=== PATIENT | female | born 1985 | race Caucasian/White ===

== ENCOUNTER 2024-01-12 15:11 | Emergency (ER) | payer OTHER, SELFPAY ==
[2024-01-12 15:22] VITALS: BP 110/75
[2024-01-12 15:54] LABS: % Basophils 0.9 % (0-2); % Eosinophils 0.9 % (0-6); % Immature Granulocytes 0.1 % (0-0.5); % Lymphocytes 30.8 % (20.5-51.1); % Monocytes 10.7 % (1.7-9.3); % Neutrophils 56.6 % (42.2-75.2); Absolute Basophils 0.1 10^3/uL (0-0.2); Absolute Eosinophils 0.1 10^3/uL (0-0.7); Absolute Lymphocytes 2.1 10^3/uL (1.2-3.4); Absolute Monocytes 0.7 10^3/uL (0.1-0.6); Absolute Neutrophils 3.9 10^3/uL (1.4-6.5); Hematocrit 37.6 % (37.0-47.0); Hemoglobin 12.9 g/dL (12.0-16.0); Mean Corp Hgb Conc. 34.3 g/dL (33.0-37.0); Mean Corpuscular Hgb 30.4 pg (27.0-31.0); Mean Corpuscular Volume 88.7 fL (81.0-99.0); Mean Platelet Volume 9.5 fL (7.4-10.4); Nucleated Red Blood Cells % 0 %; Platelet Count 256 10^3/uL (130-400); Red Blood Cell Count 4.24 10^6/uL (4.20-5.40); White Blood Cell Count 6.9 10^3/uL (4.8-10.8)
[2024-01-12 16:06] LABS: HCG, Serum Qualitative Screen Negative
[2024-01-12 16:08] LABS: ALT (SGPT) 11 U/L (0-35); AST (SGOT) 20 U/L (14-36); Albumin 4.5 g/dl (3.5-5.0); Alkaline Phosphatase 43 U/L (38-126); Blood Urea Nitrogen 11 mg/dl (7-17); Calcium 9.8 mg/dl (8.4-10.2); Carbon Dioxide 27 mmol/L (22-30); Chloride 103 mmol/L (98-107); Glucose 104 mg/dl (70-99); Sodium 141 mmol/L (135-145); Total Bilirubin 0.9 mg/dl (0.2-1.3); Total Protein 6.9 g/dl (6.3-8.2); eGFR > 60.00
[2024-01-12 16:53] VITALS: BP 106/68; BMI 19.8
--- NOTE | 2024-01-12 17:08 | ED.GENMED ---
History of Present Illness
General
Chief Complaint: Seizure
Time Seen by Provider: 01/12/24 16:56
History of Present Illness
History of Present Illness:
38-year-old female with history of orthostatic hypotension presents to department for ration seizure versus fainting episode that occurred last night. Patient states she got up from the couch after watching TV. She can feel lightheaded, loss
consciousness according to her for approximately 10 seconds. When she came to she was somewhat confused but knew where and who she was. concerned for muscle rigidity that was her current period of unresponsiveness. She does admit
to drinking a glass of wine last night as well. Denies any chest pain or shortness of breath at this time. Denies fevers, chills, sweats. Has been illicit substance use. Drink alcohol routinely. Prior history of seizure activity
Past History
Past History
ED Past Medical History: None
ED Past Surgical History: Negative Appendectomy, Cardiac or Cholecystectomy
Social History
Tobacco: Non-smoker
Alcohol: Occasional
Drug: None
Personal:
Living: with family
Employment: Employed
Family History
Family History: Other (Mother with IBS and thyroid disease)
Review of Systems
Review of Systems
Allergies reviewed?: Yes
All Other Systems: ROS reviewed and negative except as documented in HPI and ROS
Phy Exam
Physical Exam
Physical Exam:
GEN: Well appearing, NAD, WDWN
HEENT: Oral mucosa moist, no scleral icterus
Cardiac: Regular rate and rhythm, no murmur
Lung: No respiratory distress, no tachypnea
MSK: No gross deformity or injuries
Skin: Good color, no pallor or jaundice, no rashes
Neuro: AO x3, moves all extremities freely, cranial nerves II through XII grossly intact
Psych: Calm, cooperative
Course
Orders/Labs/Results
Orders:
Orders
01/12/24 15:27
EKG [Electrocardiogram (*1)] Urgent
Reason for Study: Syncope
EKG- Treatment ONCE
Test Result ONCE
01/12/24 15:39
CBC/With Diff [Complete Blood Count/With Diff] Urgent
CMP [Comprehensive Metabolic Panel] Urgent
HCG, Serum Qualitative Screen Urgent
Abnormal Lab Results
01/12/24
15:39
Absolute Monos (auto) 0.7 H 10^3/uL
(0.1-0.6)
Monocytes % 10.7 H %
(1.7-9.3)
Glucose 104 H mg/dl
(70-99)
01/12/24 15:39
01/12/24 15:39
Vital Signs
Initial and Last Documented VS:
Initial Vital Signs
Temp Pulse Resp BP Pulse Ox
98.6 F 76 18 110/75 100
01/12/24 15:22 01/12/24 15:22 01/12/24 15:22 01/12/24 15:22 01/12/24 15:22
Last Documented Vital Signs
Temp Pulse Resp BP Pulse Ox
98.5 F 71 15 106/68 100
01/12/24 16:53 01/12/24 17:00 01/12/24 17:00 01/12/24 16:53 01/12/24 17:00
MDM/Problems Addressed
MDM/Problems Addressed:
Suspect this was a vasovagal syncopal event with myoclonic jerking as opposed to seizure activity. No indication to follow-up [facility] reporting form.
*Critical Care Note
Total Time (30-74mins, 75-104mins- exclusive of procedures): Not Applicable
ED Attending Note
-
Portions of this chart may have been created with voice recognition software.� Occasional wrong word or��sound alike� substitutions may have occurred due to the inherent limitations of voice recognition software.
Discharge Plan
Departure
Patient Disposition: Home (Routine Discharge)
Date of Disposition: 01/12/24
Time of Disposition: 17:10
Patient with high blood pressure during this ER visit?: No
Discharge Problem:
Syncope
Instructions: Syncope (Fainting) (DC)
Prescriptions:
No Action
Zoloft
100 mg PO DAILY
Interventions
Interventions:
*Risk Screen - Suicide Last Done: 01/12/24 16:53
*General Assessment Last Done: 01/12/24 16:53
*Neglect/Abuse Screening Last Done: 01/12/24 16:53
ED- Fall Risk Assessment Last Done: 01/12/24 16:53
*ED COVID-19 Vaccine History Last Done: 01/12/24 16:53
*Nursing Disposition Last Done: 01/12/24 17:18
ED- Cardiac Assessment Last Done: 01/12/24 16:53
ED- Neurological Assessment Last Done: 01/12/24 16:53
ED- Pulmonary Assessment Last Done: 01/12/24 16:53
Discharge Date and Time
Discharge Date/Time: 01/12/24 17:33
Print Language: SENEGALESE
== END 2024-01-12 17:33 | disposition home or self-care (01) ==
LOC: EMR 15:11
PROVIDERS: EMERGENCY PHYSICIAN Emergency Medicine; FAMILY PHYSICIAN Nurse Practitioner
DX: R55 Syncope and collapse (principal); G25.3 Myoclonus; R56.9 Unspecified convulsions; Z88.0 Allergy status to penicillin
CPT/HCPCS: 99283; 80053; 84703; 85025; 93005

== ENCOUNTER → 2025-01-07 13:02 | Outpatient (REF) | payer OTHER, SELFPAY | LOC: RAD 13:02 | PROVIDERS: ATTENDING PHYSICIAN Physician Assistant | DX: S93.401A Sprain of unspecified ligament of right ankle, initial encounter (principal) | CPT/HCPCS: 73610; 73630 ==